=== PATIENT | female | born 1970 | race Caucasian/White ===

== ENCOUNTER → 2017-09-14 14:05 | Outpatient (CLI) | payer OTHER, SELFPAY ==
--- NOTE | 2017-09-14 14:14 | XR_ITS ---
XR chest 2V HISTORY: ITS.REASON: FEVER,CHILLS,CHEST PAIN ORDERING PHYSICIAN: Bailey Cardenas PATIENT AGE: 47 years COMPARISON: None available FINDINGS: The cardiomediastinal silhouette and pulmonary vascularity are within normal limits. The lungs are clear without infiltrates, suspicious nodules, or pleural effusions. No acute bony abnormalities. IMPRESSION: Negative chest, no acute finding
== END ==
PROVIDERS: PCP Family Medicine; Visit Provider Nurse Practitioner Family
DX: R07.9 Chest pain, unspecified (principal); R50.9 Fever, unspecified
CPT/HCPCS: 71046

== ENCOUNTER → 2019-07-28 14:02 | Outpatient (CLI) | payer OTHER, SELFPAY ==
--- NOTE | 2019-07-28 14:09 | XR_ITS ---
PROCEDURE: XR CHEST 2V CLINICAL HISTORY: SOB Shortness of breath COMPARISON: CXR2V XR chest 2V from 09/14/2017 FINDINGS: The cardiomediastinal silhouette and pulmonary vascularity are within normal limits. The lungs are clear without infiltrates, suspicious nodules, or pleural effusions. No acute bony abnormalities. IMPRESSION: No acute findings. Dictated by: Haim Lim MD 07/28/2019 16:09 Electronically signed by Haim Lim MD in [place] 07/28/2019 16:09
== END ==
PROVIDERS: PCP Nurse Practitioner Family; Visit Provider Nurse Practitioner Family
DX: R06.02 Shortness of breath (principal)
CPT/HCPCS: 71046

== ENCOUNTER → 2020-03-11 09:10 | Outpatient (CLI) | payer OTHER, SELFPAY ==
--- NOTE | 2020-03-11 09:15 | XR_ITS ---
PROCEDURE: XR MULTIPLE SPINE 6+V CLINICAL INDICATION: ACUTE MIDLINE THORACIC BACK PAIN, CERVICALGIA COMPARISON: No exams were available for comparison FINDINGS: Cervical spine: Five views including obliques. Straightening of the cervical lordosis. Degenerative disc disease C5-C6 with small anterior osteophytes. Small anterior osteophyte also at C 4 inferiorly. No fracture or dislocation. No lytic or blastic change. Thoracic spine: Minimal gentle thoracic curvature convex right. No fracture or dislocation. No lytic or blastic change. Minimal degenerative changes of the midthoracic spine. IMPRESSION: Mild cervical and thoracic spondylosis as described above Dictated by: Haim Lim MD 03/11/2020 13:58 Haim Lim MD in [place] 03/11/2020 13:58
--- NOTE | 2020-03-11 09:16 | XR_ITS ---
PROCEDURE: XR CLAVICLE LT CLINICAL INDICATION: CLAVICLE ENLARGEMENT COMPARISON: CR XR CHEST 2V from 07/28/2019 FINDINGS: No fracture or dislocation. No lytic or blastic change. There is normal mineralization. The joint spaces are well-preserved. No significant degenerative/arthritic changes. No erosive changes evident. Other findings:No bony expansion apparent IMPRESSION: Negative left clavicle Dictated by: Haim Lim MD 03/11/2020 13:54 Haim Lim MD in [place] 03/11/2020 13:54
--- NOTE | 2020-03-11 09:16 | XR_ITS ---
PROCEDURE: XR SHOULDER LT MIN 2V CLINICAL INDICATION: ACUTE PAIN OF L SHOULDER COMPARISON: No exams were available for comparison FINDINGS: No fracture or dislocation. No lytic or blastic change. There is normal mineralization. The joint spaces are well-preserved. No significant degenerative/arthritic changes. No erosive changes evident. Other findings:None. IMPRESSION: Negative left shoulder Dictated by: Haim Lim MD 03/11/2020 13:54 Haim Lim MD in [place] 03/11/2020 13:54
== END ==
PROVIDERS: PCP Nurse Practitioner Family; Visit Provider Nurse Practitioner Family
DX: M54.6 Pain in thoracic spine (principal); M54.2 Cervicalgia; M25.512 Pain in left shoulder
CPT/HCPCS: 72084; 73000; 73030

== ENCOUNTER → 2020-03-22 14:37 | Outpatient (CLI) | payer OTHER, SELFPAY ==
--- NOTE | 2020-03-22 14:42 | US_ITS ---
PROCEDURE: US CHEST CLINICAL INDICATION: SWELLING, MASS, OR LUMP IN CHEST COMPARISON: CR XR CLAVICLE LT from 03/11/2020 FINDINGS: Palpable abnormality is reported in the left supraclavicular area. No sonographic abnormality evident at the area of palpable concern. If there is indeed a palpable abnormality here then, CT may provide further evaluation. No abnormal fluid collection. IMPRESSION: Unremarkable ultrasound of left supraclavicular region Dictated by: Haim Lim MD 03/22/2020 18:28 Haim Lim MD in [place] 03/22/2020 18:28
== END ==
PROVIDERS: PCP Nurse Practitioner Family; Visit Provider Nurse Practitioner
DX: R22.2 Localized swelling, mass and lump, trunk (principal)
CPT/HCPCS: 76604

== ENCOUNTER → 2020-03-26 10:28 | Outpatient (CLI) | payer OTHER, SELFPAY ==
--- NOTE | 2020-03-26 10:41 | XR_ITS ---
PROCEDURE: XR CHEST PORTABLE CLINICAL HISTORY: COVID OUT PATIENT COMPARISON: CR CXR2V XR chest 2V from 09/14/2017 CR XR CHEST 2V from 07/28/2019 FINDINGS: The cardiomediastinal silhouette and pulmonary vascularity are within normal limits. The lungs are clear without infiltrates, suspicious nodules, or pleural effusions. No acute bony abnormalities. IMPRESSION: No acute findings. Dictated by: Haim Lim MD 03/26/2020 11:32 Haim Lim MD in [place] 03/26/2020 11:32
[2020-03-26 11:11] LABS: Basophils # 0.1 K/mm3 (0-0.2); Basophils % 0.6 % (0.1-2.0); Eosinophils # 0.1 K/mm3 (0.0-0.4); Hematocrit 47.7 % (37.0-47.0); Hemoglobin 15.5 g/dL (12.2-16.2); Lymphocytes # 2.1 K/mm3 (0.7-4.5); Lymphocytes % 24.4 % (10-50); Mean Corpuscular HGB Conc 32.5 g/dL (31.8-35.4); Mean Corpuscular Hemoglobin 29.1 pg (27.0-31.2); Mean Corpuscular Volume 89.5 fl (81-99); Mean Platelet Volume 7.2 fl (7.4-10.4); Monocytes # 0.4 K/mm3 (0.1-1.0); Monocytes % 5.1 % (1.7-9.3); Neutrophils % 68.8 % (37.0-80.0); Platelet Count 280 K/mm3 (142-424); Red Blood Count 5.33 M/mm3 (4.20-5.40); Red Cell Distribution Width 12.4 % (11.5-17.5); White Blood Count 8.7 K/mm3 (4.8-10.8)
== END ==
PROVIDERS: PCP Nurse Practitioner Family; Visit Provider Nurse Practitioner Family
DX: Z03.818 Encounter for observation for suspected exposure to other biological agents ruled out (principal)
CPT/HCPCS: 36415; 71045; 85025; U0003

== ENCOUNTER 2023-06-15 10:04 | Outpatient (RCR) | payer OTHER, SELFPAY | END 2023-06-15 11:00 | disposition home or self-care (01) | LOC: PT 10:04 | PROVIDERS: Visit Provider Nurse Practitioner Family | DX: M25.572 Pain in left ankle and joints of left foot (principal); M25.472 Effusion, left ankle; S99.912A Unspecified injury of left ankle, initial encounter | CPT/HCPCS: 97760 ==

== ENCOUNTER → 2023-06-15 10:25 | Outpatient (CLI) | payer OTHER, SELFPAY ==
--- NOTE | 2023-06-15 10:42 | XR_ITS ---
FINAL REPORT CLINICAL HISTORY: left pain, swelling post fall COMPARISON: None FINDINGS: LEFT ANKLE Three views demonstrate no acute fracture or dislocation. The visualized joint spaces are normally aligned. The soft tissues are unremarkable. A small plantar calcaneal spur is present. IMPRESSION: No acute bony abnormality. Reviewed, Interpreted and Dictated by Farooq Damico MD Transcribed by Merle Ricketts Authenticated and [facility]
== END ==
PROVIDERS: PCP Nurse Practitioner Family; Visit Provider Nurse Practitioner Family
DX: M25.472 Effusion, left ankle (principal); S99.912A Unspecified injury of left ankle, initial encounter
CPT/HCPCS: 73610

== ENCOUNTER 2023-12-17 10:31 | Outpatient (CLI) | payer OTHER, SELFPAY ==
[2023-12-17 17:23] LABS: Basophils # 0.1 K/mm3 (0-0.2); Basophils % 0.8 % (0.1-2.0); Eosinophils # 0.1 K/mm3 (0.0-0.4); Eosinophils % 0.7 % (0.1-12.0); Lymphocytes % 24.4 % (10-50); Mean Corpuscular HGB Conc 32.6 g/dL (31.8-35.4); Mean Corpuscular Volume 91.9 fl (81-99); Monocytes # 0.4 K/mm3 (0.1-1.0); Monocytes % 5.4 % (1.7-9.3); Neutrophils # 5.7 K/mm3 (1.8-7.8); Neutrophils % 68.7 % (37.0-80.0); Platelet Count 296 K/mm3 (142-424); Red Blood Count 5.33 M/mm3 (4.20-5.40); Red Cell Distribution Width 13.2 % (11.5-17.5); White Blood Count 8.3 K/mm3 (4.8-10.8)
[2023-12-17 17:49] LABS: Alanine Aminotransferase 76 U/L (12-78); Albumin Level 4.7 g/dl (3.5-5.0); Albumin/Globulin Ratio 1.6 (1.1-1.8); Alkaline Phosphatase 87 U/L (38-126); Anion Gap 13.7 mEq/L (5-15); Aspartate Amino Transferase 63 U/L (14-36); Bilirubin,Total 0.6 mg/dl (0.2-1.3); Blood Urea Nitrogen 15 mg/dl (7-17); Calcium 9.9 mg/dl (8.4-10.2); Carbon Dioxide 33 mmol/L (22.0-30.0); Chloride 98 mmol/L (98-107); Chol/HDL Ratio 6.2 (1-3.5); Cholesterol 222 mg/dl (140-200); Estimated Glomerular Filt Rate 88 ml/min (>60); GFR (African American) 107 ML/MIN (>60); Globulin 2.9 g/dL (1.3-3.2); Glucose 90 mg/dl (74-100); HDL Cholesterol 36 mg/dl (40-60); Potassium 4.7 mmoL/L (3.5-5.1); Sodium 140 mmol/L (136-145); Total Protein,Serum 7.6 g/dl (6.3-8.2); Triglycerides 132 mg/dl (30-150); VLDL Cholesterol 26 mg/dL (0-40)
[2023-12-17 18:00] LABS: C-Reactive Protein 3.1 mg/L (0-4); Direct LDL Cholesterol 155.25 mg/dL (100-129)
[2023-12-17 18:14] LABS: Troponin I < 0.01 ng/ml (0.00-0.034)
[2023-12-17 18:19] LABS: Thyroid Stimulating Hormone 0.87 uIU/mL (0.465-4.68)
== END 2023-12-17 23:59 | disposition home or self-care (01) ==
LOC: LAB.DROPOF 12-20 10:31
PROVIDERS: PCP Nurse Practitioner Family; Visit Provider Nurse Practitioner Family
DX: R07.9 Chest pain, unspecified (principal)
CPT/HCPCS: 80050; 80053; 80061; 83735; 84443; 84484; 85025; 86140